=== PATIENT | female | born 1945 | race Caucasian/White ===

== ENCOUNTER → 2022-10-03 | Outpatient (CLI) | payer MEDICARE ==
[~2022-10-03] MED LIST: GADOBENATE DIMEGLUMINE 1 ML IV ONE
[2022-10-03 09:29] LABS: CREATININE, SERUM 0.79 mg/dL (0.57-1.11)
== END ==
LOC: MRI 08:35
PROVIDERS: ATTEND Family Medicine
DX: D33.3 Benign neoplasm of cranial nerves (principal)
CPT/HCPCS: 36415; 70553; 82565; 84520; A9577